=== PATIENT | male | born 1965 | race American Indian/Alaskan Native ===

== ENCOUNTER 2018-11-12 02:45 | Emergency (ER) | payer OTHER ==
[2018-11-12] MEDS ORDERED: SUBLIMAZE IV ONE (03:55)
[2018-11-12] MEDS ORDERED: NACL 0.9% 500 ML 500 ML IV ONE (03:55)
--- NOTE | 2018-11-12 03:58 | Event Note ---
Date: 11/12/18 Medical screening note. This is a 53-year-old gentleman with a history of traumatic cervical injury, 10 years ago, and reported cervical spine fusion. Also has a history of diabetes. Patient reports being at work 3 weeks ago, standing up, and hitting his head. He did not report this to supervisors at work. There is no neck pain. He reports a gradual decline in functional status, and thinks that his legs are giving out on him. On his exam, he has 5 out of 5 strength in his bilateral upper extremities. Sensation is intact to pinch and proprioception in bilateral upper extremities. He has downgoing plantar reflexes bilaterally. He moves his lower extremities briskly and response to painful stimuli. We will treat his pain, obtain screening laboratory studies as he endorses burning calves, and feels like his calves are on fire, and we will obtain imaging studies of brain, cervical spine, and bilateral shoulders. Vital Signs 11/12/18 02:58 Temperature 98.8 F Pulse Rate 101 H Respiratory 20 Rate Blood Pressure 155/98 Blood Pressure 155/98 [Left] O2 Sat by Pulse 100 Oximetry
--- NOTE | 2018-11-12 04:55 | Cat Scan Report ---
PROCEDURE: CT HEAD/BRAIN WO CON TECHNIQUE: Computerized tomography of the head was performed without contrast material. CT DOSE LENGTH PRODUCT: 946.28 mGycm HISTORY: fell today, hit head COMPARISONS: None . FINDINGS: Unenhanced CT of the brain was performed and demonstrates no acute intracranial hemorrhage, extra-axial fluid collection, midline shift or mass effect. The ventricles and basal cisterns are no t effaced. The mastoid air cells and middle ears appear clear. There is no evidence of acute sinusitis. The bony calvarium appears intact. IMPRESSION: No acute intracranial hemorrhage This document is electronically signed by Corwin Anderson MD., November 12 2018 04:53:45 AM ET
--- NOTE | 2018-11-12 04:57 | XRay Report ---
PROCEDURE: XR SHOULDER BILAT 2+V HISTORY: shoulder pain FINDINGS: AP views in internal and external rotation and scapular Y views were acquired in the right shoulder and left shoulder. On the right, no fracture is seen. There is moderate glenohumeral osteoarthritis. There is dorsal spu rring at the level of the acromioclavicular joint. On the left, no fracture is seen. There is dorsal spurring at the level of the acromioclavicular join t. IMPRESSION: No fracture is seen on the shoulder This document is electronically signed by Corwin Anderson MD., November 12 2018 04:55:05 AM ET
--- NOTE | 2018-11-12 04:59 | Cat Scan Report ---
PROCEDURE: CT CERVICAL SPINE WO CON TECHNIQUE: Computerized tomography of the cervical spine was performed from the skull base to T1 wit hout contrast material. CT DOSE LENGTH PRODUCT: 875.95 mGycm HISTORY: fell today, hit head, LOC COMPARISONS: None . FINDINGS: Unenhanced CT of the cervical spine was performed and data was reformatted in the sagittal and coronal planes. These images demonstrate no fracture of the cervical spine. There is an anterior plate at C4-C5. Ther e is endplate remodeling at C3-C4 and C5-C6. The prevertebral soft tissues are within normal limits. There is facet hypertrophy, particularly on the left at C2-C3 There is loss of normal cervical lordosis which may be due to pain, muscle spasm or patient positioni ng for the examination. The pulmonary apices appear clear. IMPRESSION: No fracture is seen in the cervical spine This document is electronically signed by Corwin Anderson MD., November 12 2018 04:57:34 AM ET
[2018-11-12 05:19] LABS: Hematocrit 45.1 % (35.5-45.6); Hemoglobin 15.7 gm/dl (11.8-15.2); Mean Corpuscular HGB Conc 35 % (32-34); Mean Corpuscular Volume 90 fl (84-94); Platelet Count 278 K/mm3 (140-440); Red Blood Count 5.02 M/mm3 (3.65-5.03); Red Cell Distribution Width 13.1 % (13.2-15.2)
[2018-11-12 05:27] LABS: BUN/Creatinine Ratio 19; Blood Urea Nitrogen 13 mg/dL (9-20); Calcium 9.6 mg/dL (8.4-10.2); Hemolysis Index 18
[2018-11-12] MEDS ORDERED: DILAUDID IV ONE ×4 (06:53→17:40)
[2018-11-12] MEDS ORDERED: ZOFRAN IV ONE ×2 (06:53→09:40)
--- NOTE | 2018-11-12 07:03 | Emergency Department Report ---
ED Fall HPI - General Chief Complaint: Fall Stated Complaint: BILATERAL HIP/SHOULDER PAIN/FALL Time Seen by Provider: 11/12/18 06:04 Source: patient, EMS Mode of arrival: Stretcher Limitations: Physical Limitation (nonambulatory) - History of Present Illness Initial Comments: 53-year-old male with a past medical history of cervical fusion, diabetes, and hypertension presents to the Hospital complaining of pain status post fall. Patient has been nonambulatory and wheelchair bound secondary to progressive weakness for last 2 weeks. His was assisting him to the bathroom when he fell striking his head and landed on his buttocks. Complains of headache, neck pain, bilateral shoulder pain, a right hip/sciatic pain. Earlier this month and while at work patient struck the back of his head on a shelf. No LOC at that time. Patient has however continued to have progressively worsening burning sensation/numbness to bilateral hands and lower extremities. October 16 patient was seen at [facility]. After discussion with transfer service presented with hyperglycemia and neuropathy like pain. Patient was prescribed medications for diabetes and gabapentin. Patient has continued to have burning sensation with progressive difficulty walking and weakness. He then presented to [facility] and was discharged with crutches. He then states he followed up with her primary care clinic and after checking his hemoglobin A1c told him that "the neuropathy is not causing his weakness". Since that visit and over the last 2 weeks he has had progressively worsening weakness and has not been able to ambulate. He is unable to use crutches and does not have a wheelchair. His was assisting him to the bedside commode when he fell today. He has been unable to follow-up with recommended to specialist due to lack of insurance here in [place]. Patient states he had similar symptoms 6 years ago when he sustained a cervical injury after his top of his head was struck with a beam. He had cervical fusion as a result of the injury but made a full recovery until steady decline over the last 2 weeks. Patient states he has felt constip ated and has had difficulty having a bowel movement. No urinary incontinence or retention noted. Patient states prior to the head injury earlier this month he did not have any diabetic neuropathy pain. - Related Data Allergies Allergy/AdvReac Type Severity Reaction Status Date / Time No Known Allergies Allergy Unverified 11/12/18 02:58 ED Review of Systems ROS: Stated complaint: BILATERAL HIP/SHOULDER PAIN/FALL Other details as noted in HPI Comment: All other systems reviewed and negative ED Past Medical Hx - Past Medical History Previous Medical History?: Yes Hx Hypertension: Yes Hx Diabetes: Yes Additional medical history: neuro damage due to injury - Surgical History Past Surgical History?: Yes Additional Surgical History: neck spinal fusion( 10 years ago). Patient did back to normal activity, but he fell 4 months ago, then he said he can't walk again - Social History Smoking Status: Former Smoker Substance Use Type: None ED Physical Exam - General Limitations: No Limitations - Other Other exam information: General: No limitations, patient is alert in no acute distress Head exam: Atraumatic, normocephalic Eyes exam: Normal appearance ENT: Moist mucous membrane, normal oropharynx Neck exam:full range of motion, no meningismus nontender Respiratory exam: Clear to auscultation bilateral, no wheezes, rales, crackles Cardiovascular: Normal rate and rhythm, normal heart sounds Abdomen: Soft, nondistended, and nontender, with normal bowel sounds, no rebound, or guarding Extremity: Full range of motion normal inspection no deformity Back: Normal Inspection Neurologic: Alert, oriented x3, cranial nerves intact, 4+/5 upper extremity strength equal bilaterally, patient complains of pain with resistance. Patient unable to lift either lower extremity off of the bed against gravity. He is able to move his toes. Decreased sensation is equal bilaterally to light touch. Psychiatric: normal affect, normal mood Skin: Warm, dry, intact ED Course Vital Signs 11/12/18 11/12/18 11/12/18 02:58 04:01 05:01 Temperature 98.8 F Pulse Rate 101 H 92 H Respiratory 20 17 Rate Blood Pressure 155/98 155/101 172/101 Blood Pressure 155/98 [Left] O2 Sat by Pulse 100 100 96 Oximetry 11/12/18 11/12/18 11/12/18 05:45 06:00 06:15 Temperature Pulse Rate 93 H 95 H 96 H Respiratory 14 16 16 Rate Blood Pressure 172/101 179/104 179/104 Blood Pressure [Left] O2 Sat by Pulse 100 98 99 Oximetry 11/12/18 11/12/18 11/12/18 06:25 06:31 06:45 Temperature Pulse Rate 98 H 95 H 97 H Respiratory 18 17 15 Rate Blood Pressure 147/100 147/100 Blood Pressure 147/100 [Left] O2 Sat by Pulse 97 98 96 Oximetry 11/12/18 11/12/18 11/12/18 07:00 07:15 07:31 Temperature Pulse Rate 102 H 101 H 101 H Respiratory 25 H 22 13 Rate Blood Pressure 138/88 138/88 138/88 Blood Pressure [Left] O2 Sat by Pulse 100 98 Oximetry 11/12/18 11/12/18 11/12/18 07:55 08:00 08:15 Temperature Pulse Rate 99 H 98 H 101 H Respiratory 17 14 18 Rate Blood Pressure 138/88 139/82 139/82 Blood Pressure [Left] O2 Sat by Pulse 98 98 Oximetry 11/12/18 11/12/18 11/12/18 10:15 10:31 10:45 Temperature Pulse Rate 107 H 101 H 101 H Respiratory 10 L 14 16 Rate Blood Pressure 138/88 138/88 138/88 Blood Pressure [Left] O2 Sat by Pulse 98 93 96 Oximetry 11/12/18 11/12/18 11/12/18 11:01 11:15 11:31 Temperature Pulse Rate 100 H 98 H 93 H Respiratory 19 16 19 Rate Blood Pressure 139/82 139/82 139/82 Blood Pressure [Left] O2 Sat by Pulse 96 98 100 Oximetry 11/12/18 11/12/18 11:45 12:01 Temperature Pulse Rate 99 H 101 H Respiratory 12 15 Rate Blood Pressure 139/82 139/82 Blood Pressure [Left] O2 Sat by Pulse 99 98 Oximetry - Consultations Consultation #1: 11/12/18 07:04 Case discussed with Tele neuro medical education manager who recommends a MRI C and T-spine 11/12/18 12:16 case rediscussed with neuro (see note) case d/w with [facility] transfer, they do not have any neuro beds. [facility] also reviewed medical records states that patient was seen there and evaluated on October 16 episodes with hyperglycemia and burning pain 2 extremities. Patient was diagnosed with diabetic neuropathy and prescribed diabetes medication to control sugar and gabapentin. 11/12/18 13:[address] reyes neurosurgery at [facility] main, he has no acute recommendations. States not clearly and acute neurosurgical case at this time. He states that he is willing to consult on the patient but requests admission to the neurology/hospitalist service 11/12/18 13:15 Case discussed with hospitalist Dr. Kemp, he will speak to Dr reyes and recontact hospitalist service 11/12/18 13:44 pt has been accepted for transfer to [facility] ED Medical Decision Making - Lab Data Result diagrams: 11/12/18 04:42 11/12/18 04:42 Lab Results 11/12/18 11/12/18 Range/Units 04:42 04:42 WBC 5.6 (4.5-11.0) K/mm3 RBC 5.02 (3.65-5.03) M/mm3 Hgb 15.7 H (11.8-15.2) gm/dl Hct 45.1 (35.5-45.6) % MCV 90 (84-94) fl MCH 31 (28-32) pg MCHC 35 H (32-34) % RDW 13.1 L (13.2-15.2) % Plt Count 278 (140-440) K/mm3 Sodium 137 (137-145) mmol/L Potassium 3.9 (3.6-5.0) mmol/L Chloride 97.4 L (98-107) mmol/L Carbon Dioxide 25 (22-30) mmol/L Anion Gap 19 mmol/L BUN 13 (9-20) mg/dL Creatinine 0.7 L (0.8-1.5) mg/dL Estimated GFR > 60 ml/min BUN/Creatinine Ratio 19 % Glucose 195 H (75-100) mg/dL Calcium 9.6 (8.4-10.2) mg/dL Magnesium 1.90 (1.7-2.3) mg/dL Total Creatine Kinase 72 (55-170) units/L - Radiology Data Radiology results: report reviewed PROCEDURE: CT CERVICAL SPINE WO CON TECHNIQUE: Computerized tomography of the cervical spine was performed from the skull base to T1 without contrast material. CT DOSE LENGTH PRODUCT: 875.95 mGycm HISTORY: fell today, hit head, LOC COMPARISONS: None . FINDINGS: Unenhanced CT of the cervical spine was performed and data was reformatted in the sagittal and coronal planes. These images demonstrate no fracture of the cervical spine. There is an anterior plate at C4-C5. There is endplate remodeling at C3-C4 and C5-C6. The prevertebral soft tissues are within normal limits. There is facet hypertrophy, particularly on the left at C2-C3 There is loss of normal cervical lordosis which may be due to pain, muscle spasm or patient positioning for the examination. The pulmonary apices appear clear. IMPRESSION: No fracture is seen in the cervical spine PROCEDURE: CT HEAD/BRAIN WO CON TECHNIQUE: Computerized tomography of the head was performed without contrast material. CT DOSE LENGTH PRODUCT: 946.28 mGycm HISTORY: fell today, hit head COMPARISONS: None . FINDINGS: Unenhanced CT of the brain was performed and demonstrates no acute intracranial hemorrhage, extra-axial fluid collection, midline shift or mass effect. The ventricles and basal cisterns are not effaced. The mastoid air cells and middle ears appear clear. There is no evidence of ac jet sinusitis. The bony calvarium appears intact. IMPRESSION: No acute intracranial hemorrhage RIGHT HIP RADIOGRAPHS INDICATION: Pain after fall. COMPARISON: None similar. FINDINGS: An AP pelvic radiograph with frog-leg projection of the right hip demonstrate normal femoral head contours. Imaged bilateral SI and hip joints appear intact. Mild bony degenerative changes. Nonobstructive bowel gas pattern. CONCLUSION: No acute radiographic abnormality with few degenerative changes noted. PROCEDURE: XR SHOULDER BILAT 2+V HISTORY: shoulder pain FINDINGS: AP views in internal and external rotation and scapular Y views were acquired in the right shoulder and left shoulder. On the right, no fracture is seen. There is moderate glenohumeral osteoarthritis. There is dorsal spurring at the level of the acromioclavicular joint. On the left, no fracture is seen. There is dorsal spurring at the level of the acromioclavicular joint. IMPRESSION: No fracture is seen on the shoulder MRI CERVICAL SPINE WITHOUT CONTRAST INDICATION: Burning to hands and legs with weakness after injury. COMPARISON: Cervical spine CT from earlier today. FINDINGS: Noncontrast axial and sagittal T1 and T2-weighted MRI of the cervical spine somewhat limited due to motion, though again demonstrates anterior C4-C5 plate and screw fusion susceptibility artifact. Straightening noted, possibly positional versus spasm. No definite abnormal intrinsic cord signal, to the extent assessed. Normal remainder vertebral body stature and marrow signal. Intact craniocervical articulation and cervicomedullary junction. Normal paraspinal soft tissues. On the obtained axial images: C2-C3 again demonstrates asymmetric moderate to severe left facet hypertrophy, axial series 6, image 25. Left more than right uncovertebral spurring with moderate to severe left neural foraminal narrowing also possible. C3-C4 demonstrates moderate asymmetric right facet arthropathy, axial image 20. C4-C5 suggests right paracentral disc bulge/osteophyte complex with slight ventral CSF effacement as on axial image 16. No cord compression. C5-C6, C6-C7 and C7-T1 grossly within normal limits. CONCLUSION: Cervical spine straightening, anterior C4-C5 fusion and few degenerative changes again noted, as detailed above. Please correlate. MRI THORACIC SPINE WITHOUT CONTRAST INDICATION: Leg weakness, burning leg pain. COMPARISON: None similar. FINDINGS: Noncontrast axial and sagittal T1 and T2-weighted MRI of the thoracic spine technically limited due to motion, though suggests grossly normal thoracic cord without abnormal intrinsic signal and surrounded by CSF, to the extent assessed. Mild thoracolumbar scoliosis suspected. Slight T1 superior endplate depression/possible Schmorl's node, sagittal series 5, image 6. Normal remainder vertebral body stature and marrow signal. Slight disc desiccation about T7 and T8 possible. Lower thoracic facet arthropathy about T11-T12 also possible as on axial image 45. Grossly normal remainder disc heights and signal. No significant imaged paraspinal or lung abnormality. CONCLUSION: No acute significant thoracic spine MRI abnormality suspected with mild scoliosis and few degenerative changes possible, as above. Please correlate. - Medical Decision Making Discrepancy between the radiologist and neurologist impression of MRI cervical spine discussed with radiologist. The finding identified by neurologist is is also area of of artifact due to hardware medicated a difficult call. In the ED patient was initially treated with fentanyl then Dilaudid and Zofran for pain. 2 mg IV provided as well as neurology recommendation. Neurosurgery did not have any acute recommendations at this time Patient to be transferred to [facility] [place] to be evaluated by both neurology and neurosurgery - Differential Diagnosis fracture, contusion, sprain, cord injury Critical Care Time: Yes Critical care time in (mins) excluding proc time.: 35 (consult/transfer time) Critical care attestation.: If time is entered above; I have spent that time in minutes in the direct care of this critically ill patient, excluding procedure time. ED Disposition Clinical Impression: Weakness, Unable to ambulate, Lower extremity weakness, Paresthesia, Diabetes, HTN (hypertension) Disposition: DC/TX-70 ANOTHER TYPE HLTHCARE Is pt being admited?: No Condition: Stable Time of Disposition: 13:49
--- NOTE | 2018-11-12 08:06 | XRay Report ---
RIGHT HIP RADIOGRAPHS INDICATION: Pain after fall. COMPARISON: None similar. FINDINGS: An AP pelvic radiograph with frog-leg projection of the right hip demonstrate normal femoral head contours. Imaged bilateral SI and hip joints appear intact. Mild bony degenerative changes. Nonobstructive bowel gas pattern. CONCLUSION: No acute radiographic abnormality with few degenerative changes noted. Thank you for the opportunity to participate in this patient's care.
[2018-11-12] MEDS ORDERED: DILAUDID ONE (09:43)
--- NOTE | 2018-11-12 10:58 | Magnetic Resonance Report ---
MRI THORACIC SPINE WITHOUT CONTRAST INDICATION: Leg weakness, burning leg pain. COMPARISON: None similar. FINDINGS: Noncontrast axial and sagittal T1 and T2-weighted MRI of the thoracic spine technically limited due to motion, though suggests grossly normal thoracic cord without abnormal intrinsic signal and surrounded by CSF, to the extent assessed. Mild thoracolumbar scoliosis suspected. Slight T1 superior endplate depression/possible Schmorl's node, sagittal series 5, image 6. Normal remainder vertebral body stature and marrow signal. Slight disc desiccation about T7 and T8 possible. Lower thoracic facet arthropathy about T11-T12 also possible as on axial image 45. Grossly normal remainder disc heights and signal. No significant imaged paraspinal or lung abnormality. CONCLUSION: No acute significant thoracic spine MRI abnormality suspected with mild scoliosis and few degenerative changes possible, as above. Please correlate. Thank you for the opportunity to participate in this patient's care.
--- NOTE | 2018-11-12 10:58 | Magnetic Resonance Report ---
MRI CERVICAL SPINE WITHOUT CONTRAST INDICATION: Burning to hands and legs with weakness after injury. COMPARISON: Cervical spine CT from earlier today. FINDINGS: Noncontrast axial and sagittal T1 and T2-weighted MRI of the cervical spine somewhat limited due to motion, though again demonstrates anterior C4-C5 plate and screw fusion susceptibility artifact. Straightening noted, possibly positional versus spasm. No definite abnormal intrinsic cord signal, to the extent assessed. Normal remainder vertebral body stature and marrow signal. Intact craniocervical articulation and cervicomedullary junction. Normal paraspinal soft tissues. On the obtained axial images: C2-C3 again demonstrates asymmetric moderate to severe left facet hypertrophy, axial series 6, image 25. Left more than right uncovertebral spurring with moderate to severe left neural foraminal narrowing also possible. C3-C4 demonstrates moderate asymmetric right facet arthropathy, axial image 20. C4-C5 suggests right paracentral disc bulge/osteophyte complex with slight ventral CSF effacement as on axial image 16. No cord compression. C5-C6, C6-C7 and C7-T1 grossly within normal limits. CONCLUSION: Cervical spine straightening, anterior C4-C5 fusion and few degenerative changes again noted, as detailed above. Please correlate. Thank you for the opportunity to participate in this patient's care.
--- NOTE | 2018-11-12 12:08 | Emergency Department Report ---
ED General Adult HPI - General Chief complaint: Fall Stated complaint: BILATERAL HIP/SHOULDER PAIN/FALL Time Seen by Provider: 11/12/18 06:04 Source: patient, EMS Mode of arrival: Stretcher Limitations: No Limitations - History of Present Illness Initial comments: [facility] Date of service: 11/12/2018 Impression: 53 year old male who presented to the ED because of progressive weakness in both legs over the past 2 weeks after hitting the back of his head. Patient states symptoms are similar to when he had a cervical spine injury several years ago. Recommendations: -Recommend spine consult given area of T2 hyperintensity in the C4-C7 region and patient's reported stool incontinence for the past 2 weeks -Consider 10 mg IV Decadron x 1 dose to help with potential cord swelling -PT/OT -Consider inpatietn Neurology or Neurosurgery consult. CC: Leg weakness. History of Present Illness: 53 year old male who presented to the ED because of progressive weakness in his legs and arms over the past 2 weeks after hitting the back of his head. Patient states he started having burning cramping pain in both calves and progressively had more and more difficulty walking. He also reported no bowel movements in the past 2 weeks except for a small one 2-3 days ago. Patient also reports difficulty holding objects in both hands and states he has been dropping objects and has a hard time feeding himself. Diagnostic Testing: MRI cervical spine w/o contrast: area of T2 hyperintensity in the area of previous surgery -- unclear if this is new or chronic. Vital Signs: Exam: Mental Status: Awake, alert, oriented Naming: Intact Repetition: Intact Speech: fluent Cranial Nerves: Pupils: Equal round and reactive to light Extraocular movements: Intact in all cardinal gaze Ptosis: Absent Visual evans: Intact to finger counting Facial sensation: Intact to pin and light touch Facial movements: Intact and symmetric Motor Exam: decreased greeter strength bilaterally unable to lift legs against gravity reflexes absent Sensory Exam: Light touch: Intact Medical Decision Making: - Extensive number of diagnosis or management options are considered above. - Extensive amount of complex data reviewed. - High risk of complication and/or morbidity or mortality are associated with differential diagnostic considerations above. - There may be uncertain outcome and increased probability of prolonged functional impairment or high probability of severe prolonged functional impa irment associated with some of these differential diagnosis. Medical Data Reviewed: 1.Data reviewed include clinical labs, radiology, Medical Tests; 2.Tests results discussed w/performing or interpreting physician; 3.Obtaining/reviewing old medical records; 4.Obtaining case history from another source; 5.Independent review of image, tracing or specimen. Patient was informed the Neurology Consult would happen via telehealth (remote video) and consented to receiving care in this manner. Severity scale (0 -10): 8 - Related Data Allergies Allergy/AdvReac Type Severity Reaction Status Date / Time No Known Allergies Allergy Unverified 11/12/18 02:58 ED Review of Systems ROS: Stated complaint: BILATERAL HIP/SHOULDER PAIN/FALL Other details as noted in HPI ED Past Medical Hx - Past Medical History Previous Medical History?: Yes Hx Hypertension: Yes Hx Diabetes: Yes Additional medical history: neuro damage due to injury - Surgical History Past Surgical History?: Yes Additional Surgical History: neck spinal fusion( 10 years ago). Patient did back to normal activity, but he fell 4 months ago, then he said he can't walk again - Social History Smoking Status: Former Smoker Substance Use Type: None ED Physical Exam - General Limitations: No Limitations ED Course Vital Signs 11/12/18 11/12/18 11/12/18 02:58 04:01 05:01 Temperature 98.8 F Pulse Rate 101 H 92 H Respiratory 20 17 Rate Blood Pressure 155/98 155/101 172/101 Blood Pressure 155/98 [Left] O2 Sat by Pulse 100 100 96 Oximetry 11/12/18 06:25 Temperature Pulse Rate 98 H Respiratory 18 Rate Blood Pressure Blood Pressure 147/100 [Left] O2 Sat by Pulse 97 Oximetry ED Medical Decision Making - Lab Data Result diagrams: 11/12/18 04:42 11/12/18 04:42 Critical care attestation.: If time is entered above; I have spent that time in minutes in the direct care of this critically ill patient, excluding procedure time. ED Disposition Clinical Impression: Weakness Disposition: DC-09 OP ADMIT IP TO THIS HOSP Is pt being admited?: Yes Condition: Stable Referrals: [facility] MD JAVIER [Primary Care Provider] - 3-5 Days
[2018-11-12] MEDS ORDERED: DECADRON IV ONE (13:12)
[2018-11-12 18:48] VITALS: BP 138/91
== END 2018-11-12 18:00 | disposition other institution (70) ==
LOC: ED 02:45
DX: R53.1 Weakness (principal); R51 Headache; M54.2 Cervicalgia; M25.511 Pain in right shoulder; M25.512 Pain in left shoulder; R20.2 Paresthesia of skin; I10 Essential (primary) hypertension; E11.9 Type 2 diabetes mellitus without complications; Z98.890 Other specified postprocedural states; Z87.891 Personal history of nicotine dependence; W18.30XA Fall on same level, unspecified, initial encounter; Y93.89 Activity, other specified; Y92.89 Other specified places as the place of occurrence of the external cause; Y99.8 Other external cause status
CPT/HCPCS: 36415; 70450; 72125; 72141; 72146; 73030; 73502; 80048; 82550; 83735; 85027; 96374; 96375; 96376; 99291; J1100; J1170; J2405; J3010; J7040

== ENCOUNTER 2019-01-08 02:37 | Emergency (ER) | payer OTHER ==
[2019-01-08] MEDS ORDERED: TORADOL IM ONE (03:06)
[2019-01-08] MEDS ORDERED: PERCOCET 5/325 PO ONE (03:06)
--- NOTE | 2019-01-08 03:45 | Emergency Department Report ---
ED Lower Extremity HPI - General Chief Complaint: Pain General Stated Complaint: PAIN IN LEGS/ANKLES/FEET Time Seen by Provider: 01/08/19 02:53 Source: patient Mode of arrival: Stretcher Limitations: No Limitations - History of Present Illness Initial Comments: Mr. Kennedy is a 53-year-old male with hx of HTN and DM who was recently diagnosed with Guillain-Kovacs. He had a prolonged hospitalization at [facility]. He was then transferred to detention facility. Just discharged from detention facility on last week. While walking to the bathroom, he tripped while using his walker which exacerbated neuropathy. He has diffuse throbbing in his legs with burning sensation. 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 Initially treated with high-dose gabapentin which did not manage to pain. He is now taking Cymbalta and lyrica. He is unfortunately without access to primary care, he has not had any refills of his medications since discharge from the detention facility. He does have a follow-up visit with a new physician in January. He politely requests pain control as well as refills of his medications. Complaint: foot injury, fall -: Sudden, This morning Injury: Foot: Left, Right Type of Injury: blunt Place: home Severity: mild Improves With: nothing Worsens With: weight bearing Context: fall - Related Data Previous Rx's Medication Instructions Recorded Last Taken Type Duloxetine HCl [Cymbalta] 60 mg PO DAILY 30 Days #30 01/08/19 Unknown Rx capsule. Pregabalin [Lyrica] 100 mg PO TID 30 Days #90 capsule 01/08/19 Unknown Rx Allergies Allergy/AdvReac Type Severity Reaction Status Date / Time No Known Allergies Allergy Unverified 11/12/18 02:58 ED Review of Systems ROS: Stated complaint: PAIN IN LEGS/ANKLES/FEET Other details as noted in HPI Comment: All other systems reviewed and negative Constitutional: denies: fever, malaise Respiratory: denies: cough Cardiovascular: denies: chest pain Neurological: paresthesias ED Past Medical Hx - Past Medical History Previous Medical History?: Yes Hx Hypertension: Yes Hx Diabetes: Yes Additional medical history: neuro damage due to injury - Surgical History Past Surgical History?: Yes Additional Surgical History: neck spinal fusion( 10 years ago). Patient did back to normal activity, but he fell 4 months ago, then he said he can't walk again - Social History Smoking Status: Never Smoker Substance Use Type: None - Medications Home Medications: Home Medications Medication Instructions Recorded Confirmed Last Taken Type Duloxetine HCl [Cymbalta] 60 mg PO DAILY 30 Days #30 01/08/19 Unknown Rx capsule. Pregabalin [Lyrica] 100 mg PO TID 30 Days #90 capsule 01/08/19 Unknown Rx ED Physical Exam - General Limitations: No Limitations General appearance: alert, in no apparent distress - Head Head exam: Present: atraumatic, normocephalic - Eye Eye exam: Present: normal appearance - ENT ENT exam: Present: mucous membranes moist - Neck Neck exam: Present: normal inspection, full ROM - Respiratory Respiratory exam: Present: normal lung sounds bilaterally. Absent: respiratory distress, wheezes, rales, rhonchi - Cardiovascular Cardiovascular Exam: Present: regular rate, normal rhythm, normal heart sounds. Absent: systolic murmur, diastolic murmur, rubs, gallop - GI/Abdominal GI/Abdominal exam: Present: soft, normal bowel sounds. Absent: distended, tenderness, guarding, rebound - Extremities Exam Extremities exam: Present: other (bilateral erythema in feet without deformity or point tenderness) - Back Exam Back exam: Present: normal inspection - Neurological Exam Neurological exam: Present: alert, oriented X3 - Psychiatric Psychiatric exam: Present: normal affect, normal mood - Skin Skin exam: Present: warm, dry, intact, normal color. Absent: rash ED Course Vital Signs 01/08/19 01/08/19 01/08/19 02:40 03:00 03:24 Temperature 97.6 F Pulse Rate 108 H Respiratory 18 18 18 Rate Blood Pressure 135/90 Blood Pressure 135/90 [Left] O2 Sat by Pulse 99 99 Oximetry 01/08/19 03:25 Temperature Pulse Rate Respiratory 18 Rate Blood Pressure Blood Pressure [Left] O2 Sat by Pulse Oximetry ED Lower Extremity MDM - Medical Decision Making Mr. Kennedy presents with neuropathic pain is exacerbated by fall without evidence of injury. Prescribed Cymbalta and gabapentin. He received Toradol and Percocet Here in the emergency department. dc'd home Critical care attestation.: If time is entered above; I have spent that time in minutes in the direct care of this critically ill patient, excluding procedure time. ED Disposition Clinical Impression: Neuropathy, Hx of Guillain-Luverne syndrome Disposition: DC-01 TO HOME OR SELFCARE Is pt being admited?: No Does the pt Need Aspirin: No Condition: Stable Instructions: Peripheral Neuropathy (ED) Prescriptions: Duloxetine HCl [Cymbalta] 60 mg PO DAILY 30 Days #30 capsule. Pregabalin [Lyrica] 100 mg PO TID 30 Days #90 capsule Referrals: ESTELLE GARCIA MD [Primary Care Provider] - 3-5 Days
[2019-01-08 04:55] VITALS: BP 127/96
== END 2019-01-08 04:50 | disposition home or self-care (01) ==
LOC: ED 02:37
DX: G62.9 Polyneuropathy, unspecified (principal); I10 Essential (primary) hypertension; E11.9 Type 2 diabetes mellitus without complications; Z86.69 Personal history of other diseases of the nervous system and sense organs; Z79.899 Other long term (current) drug therapy
CPT/HCPCS: 96372; 99283; J1885

== ENCOUNTER 2019-05-15 11:46 | Emergency (ER) | payer SELFPAY | END 2019-05-15 16:26 | disposition left against medical advice (07) | LOC: ED 11:46 | DX: M79.606 Pain in leg, unspecified (principal); Z53.21 Procedure and treatment not carried out due to patient leaving prior to being seen by health care provider ==